=== PATIENT | female | born 1945 | race Caucasian/White ===

== ENCOUNTER 2023-03-04 09:41 | Inpatient (IN) | payer MEDICARE, OTHER ==
[~2023-03-04] VITALS: Ht 157.5 cm; Wt 75.3 kg
[2023-03-04] MEDS ORDERED: SUCRALFATE (10:01)
[2023-03-04] MEDS ORDERED: ELIQUIS (10:01)
[2023-03-04] MEDS ORDERED: FEOSOL (10:01)
[2023-03-04] MEDS ORDERED: PROTONIX (10:01)
[2023-03-04] MEDS ORDERED: PRIMIDONE (10:01)
[2023-03-04] MEDS ORDERED: DILTIAZEM (10:01)
[2023-03-04] MEDS ORDERED: MIRALAX (10:01)
[2023-03-04] MEDS ORDERED: OXYCODONE/APAP 5-325 MG TABLET PO ONE ×2 (10:15→16:45)
[2023-03-04] MEDS ORDERED: OXYCODONE/APAP 5-325 MG TABLET ONE ×2 (10:42→16:43)
[2023-03-04] MEDS ORDERED: HYDR-3980 PO (11:14)
[2023-03-04 15:56] LABS: BASOPHILS % (AUTO) 0.2 % (0.0-2.0); EOSINOPHILS % (AUTO) 0.1 % (0.0-7.0); HEMATOCRIT 31.3 % (31.2-41.9); HEMOGLOBIN 10.4 g/dL (10.9-14.3); LYMPHOCYTES # (AUTO) 1.1 K/uL (0.8-4.8); LYMPHOCYTES % (AUTO) 12.6 % (20.5-51.5); MEAN CORPUSCULAR HEMOGLOBIN 30.8 uug (24.7-32.8); MEAN CORPUSCULAR HGB CONC 33 g/dL (32.3-35.6); MONOCYTES # (AUTO) 0.8 K/uL (0.1-1.30); MONOCYTES % (AUTO) 8.9 % (0.0-11.0); NEUTROPHILS % (AUTO) 78.2 % (38.5-71.5); PLATELET COUNT (AUTO) 162 K/uL (179-408); RED BLOOD CELL COUNT(AUTO) 3.37 MIL/uL (3.63-4.92); RED CELL DISTRIBUTION WIDTH 14.8 % (12.3-17.7)
[2023-03-04 16:03] LABS: CALCIUM 8.4 mg/dL (8.5-10.1); CARBON DIOXIDE 30 mmol/L (21-32); CHLORIDE 106 mmol/L (98-107); CREATININE 0.8 mg/dL (0.6-1.3); GLUCOSE 137 mg/dL (74-106); POTASSIUM 3.2 mmol/L (3.5-5.1); SODIUM SERUM 144 mmol/L (136-145); UREA NITROGEN, BLOOD 13 mg/dL (7-18)
[2023-03-04 16:08] LABS: DIFFERENTIAL COMMENT 1
[2023-03-04 17:31] LABS: ALBUMIN 3.4 g/dL (3.4-5.0); BILIRUBIN,DIRECT 0.2 mg/dL (0.0-0.2); BILIRUBIN,TOTAL 0.2 mg/dL (0.2-1.0)
[2023-03-04] MEDS ORDERED: ACETAMINOPHEN 325 MG TABLET PO PRN (20:30)
[2023-03-04] MEDS ORDERED: MAGNESIUM HYDROXIDE 30 ML LIQUID UDC PO PRN (20:30)
[2023-03-04] MEDS ORDERED: ONDANSETRON 4 MG/2 ML VIAL IV PRN (20:30)
[2023-03-04] MEDS: DOCUSATE SODIUM 100 MG CAPSULE PO SCH (21:00)
[2023-03-04 21:20] VITALS: BP 123/43; TEMP 98.2; O2SAT 97
[2023-03-04] MEDS: MORPHINE SULFATE 2 MG/1 ML DISP.SYRIN IV PRN (22:16)
[2023-03-05 04:30] VITALS: BP 127/46; TEMP 98.1; O2SAT 97
[2023-03-05] MEDS: MORPHINE SULFATE 2 MG/1 ML DISP.SYRIN IV PRN ×3 (04:32→23:23)
[2023-03-05] MEDS: PANTOPRAZOLE SODIUM 40 MG TABLET.DR PO SCH (06:43)
[2023-03-05 08:07] LABS: BASOPHILS % (AUTO) 0.5 % (0.0-2.0); EOSINOPHILS # (AUTO) 0.1 K/uL (0.0-0.7); EOSINOPHILS % (AUTO) 1.9 % (0.0-7.0); HEMATOCRIT 30.2 % (31.2-41.9); HEMOGLOBIN 10.3 g/dL (10.9-14.3); LYMPHOCYTES # (AUTO) 1.5 K/uL (0.8-4.8); LYMPHOCYTES % (AUTO) 19.2 % (20.5-51.5); MEAN CORPUSCULAR HEMOGLOBIN 31.2 uug (24.7-32.8); MEAN CORPUSCULAR HGB CONC 34 g/dL (32.3-35.6); MEAN CORPUSCULAR VOLUME 91.7 fL (75.5-95.3); MONOCYTES # (AUTO) 0.9 K/uL (0.1-1.30); MONOCYTES % (AUTO) 11.6 % (0.0-11.0); NEUTROPHILS # (AUTO) 5.2 K/uL (1.8-8.9); NEUTROPHILS % (AUTO) 66.8 % (38.5-71.5); PLATELET COUNT (AUTO) 143 K/uL (179-408); RED BLOOD CELL COUNT(AUTO) 3.29 MIL/uL (3.63-4.92); RED CELL DISTRIBUTION WIDTH 14.8 % (12.3-17.7); WHITE BLOOD COUNT (AUTO) 7.7 K/uL (3.8-11.8)
[2023-03-05 08:27] LABS: DIFFERENTIAL COMMENT 1
[2023-03-05 09:07] LABS: ALANINE AMINOTRANSFERASE 24 U/L (14-59); ALBUMIN 3.1 g/dL (3.4-5.0); ALKALINE PHOSPHATASE 60 U/L (50-136); ASPARTATE AMINOTRANSFERASE 19 U/L (15-37); BILIRUBIN,TOTAL 0.3 mg/dL (0.2-1.0); CARBON DIOXIDE 29 mmol/L (21-32); CHLORIDE 105 mmol/L (98-107); CHOLESTEROL 160 mg/dL (<200); CREATININE 0.5 mg/dL (0.6-1.3); GLUCOSE 102 mg/dL (74-106); HDL CHOLESTEROL 75 mg/dL (40-60); MAGNESIUM 2.2 mg/dL (1.8-2.4); PHOSPHOROUS 2.9 mg/dL (2.5-4.9); POTASSIUM 3.4 mmol/L (3.5-5.1); SODIUM SERUM 141 mmol/L (136-145); TOTAL PROTEIN, SERUM 6.6 g/dL (6.4-8.2); TRIGLYCERIDES 78 MG/DL (30-150); UREA NITROGEN, BLOOD 17 mg/dL (7-18)
[2023-03-05 09:54] LABS: IRON, SERUM 23 ug/dL (50-175)
[2023-03-05 10:05] LABS: CALCIUM 8.8 mg/dL (8.5-10.1)
[2023-03-05] MEDS ORDERED: POTASSIUM CHLORIDE 20 MEQ TAB.PRT.SR PO ONE (10:45)
[2023-03-05] MEDS: HYDROCODONE/APAP 5-325MG TABLET PO PRN (14:15)
[2023-03-05 16:00] VITALS: BP 149/66; TEMP 98.4; O2SAT 96
[2023-03-05] MEDS ORDERED: BISACODYL 10 MG SUPP.RECT RC PRN (19:45)
[2023-03-05 20:00] VITALS: BP 123/51; TEMP 98.7; O2SAT 94
[2023-03-05] MEDS: DOCUSATE SODIUM 100 MG CAPSULE PO SCH (21:16)
[2023-03-06] MEDS: MORPHINE SULFATE 2 MG/1 ML DISP.SYRIN IV PRN (04:41)
[2023-03-06 06:19] LABS: BASOPHILS # (AUTO) 0.1 K/UL (0.0-0.2); BASOPHILS % (AUTO) 0.5 % (0.0-2.0); EOSINOPHILS # (AUTO) 0.1 K/uL (0.0-0.7); EOSINOPHILS % (AUTO) 0.6 % (0.0-7.0); HEMATOCRIT 31.6 % (31.2-41.9); HEMOGLOBIN 10.8 g/dL (10.9-14.3); LYMPHOCYTES # (AUTO) 1.2 K/uL (0.8-4.8); LYMPHOCYTES % (AUTO) 12.3 % (20.5-51.5); MEAN CORPUSCULAR HEMOGLOBIN 31.3 uug (24.7-32.8); MEAN CORPUSCULAR HGB CONC 34 g/dL (32.3-35.6); MEAN CORPUSCULAR VOLUME 91.7 fL (75.5-95.3); MONOCYTES # (AUTO) 1.1 K/uL (0.1-1.30); MONOCYTES % (AUTO) 10.9 % (0.0-11.0); NEUTROPHILS # (AUTO) 7.5 K/uL (1.8-8.9); NEUTROPHILS % (AUTO) 75.7 % (38.5-71.5); PLATELET COUNT (AUTO) 161 K/uL (179-408); RED BLOOD CELL COUNT(AUTO) 3.45 MIL/uL (3.63-4.92); RED CELL DISTRIBUTION WIDTH 14.7 % (12.3-17.7); WHITE BLOOD COUNT (AUTO) 9.9 K/uL (3.8-11.8)
[2023-03-06 06:27] VITALS: BP 116/56; TEMP 98.6; O2SAT 93
[2023-03-06] MEDS: PANTOPRAZOLE SODIUM 40 MG TABLET.DR PO SCH (06:40)
[2023-03-06 06:52] LABS: CALCIUM 8.6 mg/dL (8.5-10.1); CARBON DIOXIDE 26 mmol/L (21-32); CHLORIDE 102 mmol/L (98-107); CREATININE 0.5 mg/dL (0.6-1.3); GLUCOSE 129 mg/dL (74-106); MAGNESIUM 1.8 mg/dL (1.8-2.4); NT-PRO BNP 406 pg/mL (0-125); PHOSPHOROUS 3.1 mg/dL (2.5-4.9); POTASSIUM 3.5 mmol/L (3.5-5.1); SODIUM SERUM 138 mmol/L (136-145); UREA NITROGEN, BLOOD 15 mg/dL (7-18)
[2023-03-06 07:10] LABS: DIFFERENTIAL COMMENT 1
[2023-03-06 11:11] VITALS: BP 121/50; TEMP 98.2; O2SAT 94
[2023-03-06] MEDS: HYDROCODONE/APAP 5-325MG TABLET PO PRN ×2 (14:02→19:56)
[2023-03-06 15:47] VITALS: BP 131/54; TEMP 98.3; O2SAT 94
[2023-03-06 19:53] VITALS: BP 150/67; TEMP 98; O2SAT 95
[2023-03-06] MEDS: DOCUSATE SODIUM 100 MG CAPSULE PO SCH (20:07)
[2023-03-06] MEDS ORDERED: APIXABAN 2.5 MG TABLET PO SCH (21:00)
[2023-03-06] MEDS ORDERED: PRIMIDONE 250 MG TABLET PO SCH (21:00)
[2023-03-06] MEDS: ZOLPIDEM 5 MG TABLET PO PRN (21:00)
[2023-03-07 04:00] VITALS: BP 128/62; TEMP 98; O2SAT 95
[2023-03-07] MEDS: PANTOPRAZOLE SODIUM 40 MG TABLET.DR PO SCH (06:09)
[2023-03-07 08:00] VITALS: BP 137/58; TEMP 98.4; O2SAT 95
[2023-03-07 08:52] LABS: BASOPHILS # (AUTO) 0.1 K/UL (0.0-0.2); BASOPHILS % (AUTO) 0.6 % (0.0-2.0); EOSINOPHILS # (AUTO) 0.1 K/uL (0.0-0.7); EOSINOPHILS % (AUTO) 1.3 % (0.0-7.0); HEMATOCRIT 32.1 % (31.2-41.9); HEMOGLOBIN 10.8 g/dL (10.9-14.3); LYMPHOCYTES # (AUTO) 1.1 K/uL (0.8-4.8); LYMPHOCYTES % (AUTO) 11.3 % (20.5-51.5); MEAN CORPUSCULAR HEMOGLOBIN 31.1 uug (24.7-32.8); MEAN CORPUSCULAR HGB CONC 34 g/dL (32.3-35.6); MEAN CORPUSCULAR VOLUME 91.9 fL (75.5-95.3); MONOCYTES % (AUTO) 10.6 % (0.0-11.0); NEUTROPHILS # (AUTO) 7.4 K/uL (1.8-8.9); NEUTROPHILS % (AUTO) 76.2 % (38.5-71.5); PLATELET COUNT (AUTO) 211 K/uL (179-408); RED BLOOD CELL COUNT(AUTO) 3.49 MIL/uL (3.63-4.92); RED CELL DISTRIBUTION WIDTH 14.9 % (12.3-17.7); WHITE BLOOD COUNT (AUTO) 9.7 K/uL (3.8-11.8)
[2023-03-07] MEDS ORDERED: DILTIAZEM HCL CD 120 MG CAP.SR.24H PO SCH ×2 (09:00)
[2023-03-07] MEDS ORDERED: PRIMIDONE 250 MG TABLET PO ONE (09:00)
[2023-03-07] MEDS ORDERED: APIXABAN 2.5 MG TABLET PO ONE (09:00)
[2023-03-07] MEDS ORDERED: PRIMIDONE 250 MG TABLET PO SCH (09:00)
[2023-03-07 09:10] LABS: ALANINE AMINOTRANSFERASE 16 U/L (14-59); ALBUMIN 3.1 g/dL (3.4-5.0); ALKALINE PHOSPHATASE 68 U/L (50-136); ASPARTATE AMINOTRANSFERASE 7 U/L (15-37); BILIRUBIN,TOTAL 0.6 mg/dL (0.2-1.0); CALCIUM 8.9 mg/dL (8.5-10.1); CARBON DIOXIDE 28 mmol/L (21-32); CHLORIDE 100 mmol/L (98-107); CREATININE 0.4 mg/dL (0.6-1.3); GLUCOSE 132 mg/dL (74-106); MAGNESIUM 2.1 mg/dL (1.8-2.4); PHOSPHOROUS 3.6 mg/dL (2.5-4.9); POTASSIUM 3.3 mmol/L (3.5-5.1); SODIUM SERUM 135 mmol/L (136-145); TOTAL PROTEIN, SERUM 7.1 g/dL (6.4-8.2); UREA NITROGEN, BLOOD 20 mg/dL (7-18)
[2023-03-07 09:29] LABS: DIFFERENTIAL COMMENT 1
[2023-03-07 09:33] LABS: AMMONIA < 10 umol/L (11-32)
[2023-03-07] MEDS: HYDROCODONE/APAP 5-325MG TABLET PO PRN (10:07)
[2023-03-07] MEDS ORDERED: LACTULOSE 20 G/30 ML LIQUID UDC PO PRN (10:30)
[2023-03-07 12:00] VITALS: BP 143/61; TEMP 98.3; O2SAT 94
[2023-03-07] MEDS ORDERED: DILT60TA3 PO (12:10)
[2023-03-07] MEDS ORDERED: FERR300L PO (12:12)
[2023-03-07] MEDS ORDERED: APIX5TAB PO (12:12)
[2023-03-07] MEDS ORDERED: POLY17PO4 PO (12:13)
[2023-03-07] MEDS ORDERED: PRIM250T32 PO (12:16)
[2023-03-07 16:00] VITALS: BP 138/68; TEMP 97.6; O2SAT 97
[2023-03-07] MEDS: DILTIAZEM HCL 60 MG TABLET PO SCH (18:28)
[2023-03-07 20:00] VITALS: BP 123/61; TEMP 98.6; O2SAT 95
[2023-03-07] MEDS ORDERED: APIXABAN 2.5 MG TABLET PO SCH (21:00)
[2023-03-07] MEDS: DOCUSATE SODIUM 100 MG CAPSULE PO SCH (21:39)
[2023-03-07] MEDS: APIXABAN 5 MG TABLET PO SCH (21:40)
[2023-03-07] MEDS: PRIMIDONE 250 MG TABLET PO SCH (21:47)
[2023-03-07] MEDS: ZOLPIDEM 5 MG TABLET PO PRN (23:27)
[2023-03-08 04:00] VITALS: BP 131/62; TEMP 98.1; O2SAT 96
[2023-03-08] MEDS: PANTOPRAZOLE SODIUM 40 MG TABLET.DR PO SCH (06:04)
[2023-03-08] MEDS: PRIMIDONE 250 MG TABLET PO SCH ×2 (06:04→14:56)
[2023-03-08 08:00] VITALS: BP 130/74; TEMP 98.8; O2SAT 94
[2023-03-08] MEDS: HYDROCODONE/APAP 5-325MG TABLET PO PRN (09:14)
[2023-03-08] MEDS: DILTIAZEM HCL 60 MG TABLET PO SCH (09:15)
[2023-03-08] MEDS: APIXABAN 5 MG TABLET PO SCH (09:18)
[2023-03-08 12:00] VITALS: BP 141/75; TEMP 97.5; O2SAT 96
[2023-03-08 13:58] VITALS: TEMP 97.5
[2023-03-08] MEDS ORDERED: FLEET ENEMA 133 ML BOTTLE RC PRN (15:00)
[2023-03-08 15:53] VITALS: BP 120/50; TEMP 99; O2SAT 98
== END 2023-03-08 16:31 | DRG 543 ==
LOC: ER 09:42 → MEDSURG3 21:02
PROVIDERS: ADMIT Internal Medicine; ATTEND Internal Medicine
DX: M80.0AXA Age-related osteoporosis with current pathological fracture, other site, initial encounter for fracture (principal); D68.59 Other primary thrombophilia; M62.82 Rhabdomyolysis; E87.1 Hypo-osmolality and hyponatremia; D69.6 Thrombocytopenia, unspecified; G25.0 Essential tremor; E87.6 Hypokalemia; E66.9 Obesity, unspecified; Z68.30 Body mass index [BMI] 30.0-30.9, adult; W01.0XXA Fall on same level from slipping, tripping and stumbling without subsequent striking against object, initial encounter; Y93.01 Activity, walking, marching and hiking; Y92.018 Other place in single-family (private) house as the place of occurrence of the external cause; M81.0 Age-related osteoporosis without current pathological fracture; I48.91 Unspecified atrial fibrillation; I25.10 Atherosclerotic heart disease of native coronary artery without angina pectoris; D64.9 Anemia, unspecified; R73.9 Hyperglycemia, unspecified; Z87.828 Personal history of other (healed) physical injury and trauma
CPT/HCPCS: 36415; 71045; 73502; 82378; 83550; 83735; 84100; 84443; 84484; 85025; 93005; G0378; J2270

== ENCOUNTER 2023-03-08 16:48 | Inpatient (IN) | payer MEDICARE, OTHER ==
[~2023-03-08] VITALS: Ht 157.5 cm; Wt 75.3 kg
[~2023-03-08 16:48] MED LIST: APIX5TAB PO; DILT60TA3 PO; FERR300L PO; HYDR-3980 PO; POLY17PO4 PO; PRIM250T32 PO
[2023-03-08] MEDS ORDERED: ONDANSETRON 4 MG/2 ML VIAL IV PRN ×2 (17:45→19:00)
[2023-03-08] MEDS ORDERED: FLEET ENEMA 133 ML BOTTLE RC PRN (18:30)
[2023-03-08] MEDS ORDERED: BISACODYL 10 MG SUPP.RECT RC PRN (18:55)
[2023-03-08] MEDS ORDERED: MORPHINE SULFATE 2 MG/1 ML DISP.SYRIN IV PRN (18:57)
[2023-03-08] MEDS ORDERED: LACTULOSE 20 G/30 ML LIQUID UDC PO PRN (18:59)
[2023-03-08 20:00] VITALS: BP 117/45; TEMP 98.5; O2SAT 95
[2023-03-08] MEDS: DOCUSATE SODIUM 100 MG CAPSULE PO SCH (20:33)
[2023-03-08] MEDS: APIXABAN 5 MG TABLET PO SCH (20:33)
[2023-03-08] MEDS: HYDROCODONE/APAP 5-325MG TABLET PO PRN (20:55)
[2023-03-08] MEDS: PRIMIDONE 250 MG TABLET PO SCH (21:09)
[2023-03-08 22:33] LABS: *OCCULT BLOOD STOOL POSITIVE (NEGATIVE)
[2023-03-09 00:08] VITALS: BP 115/45; TEMP 98.2
[2023-03-09] MEDS: PRIMIDONE 250 MG TABLET PO SCH ×3 (05:33→21:12)
[2023-03-09] MEDS: HYDROCODONE/APAP 5-325MG TABLET PO PRN (05:33)
[2023-03-09] MEDS: PANTOPRAZOLE SODIUM 40 MG TABLET.DR PO SCH (06:04)
[2023-03-09 06:49] VITALS: BP 113/50; TEMP 98.3
[2023-03-09] MEDS: DILTIAZEM HCL 60 MG TABLET PO SCH ×2 (09:36→16:34)
[2023-03-09] MEDS: APIXABAN 5 MG TABLET PO SCH ×2 (09:38→20:22)
[2023-03-09 15:45] VITALS: BP 110/45; TEMP 99
[2023-03-09 15:53] VITALS: BP 110/45; TEMP 99.1
[2023-03-09 19:50] VITALS: BP 114/46; TEMP 98.2; O2SAT 97
[2023-03-09] MEDS: DOCUSATE SODIUM 100 MG CAPSULE PO SCH (20:21)
[2023-03-10] MEDS: PANTOPRAZOLE SODIUM 40 MG TABLET.DR PO SCH (05:10)
[2023-03-10] MEDS: PRIMIDONE 250 MG TABLET PO SCH ×3 (05:10→21:00)
[2023-03-10 06:17] VITALS: BP 124/65; TEMP 98.3; O2SAT 92
[2023-03-10 07:31] VITALS: BP 135/48; TEMP 98.5; O2SAT 94
[2023-03-10] MEDS: DILTIAZEM HCL 60 MG TABLET PO SCH ×2 (08:24→16:05)
[2023-03-10] MEDS: APIXABAN 5 MG TABLET PO SCH ×2 (08:27→20:05)
[2023-03-10 15:34] VITALS: BP 124/53; TEMP 98.5; O2SAT 97
[2023-03-10 20:00] VITALS: BP 133/49; TEMP 98.1; O2SAT 96
[2023-03-10] MEDS ORDERED: ZOLPIDEM 5 MG TABLET PO PRN (20:00)
[2023-03-10] MEDS: DOCUSATE SODIUM 100 MG CAPSULE PO SCH (20:07)
[2023-03-10] MEDS: ZOLPIDEM 5 MG TABLET PO PRN (20:17)
[2023-03-11 04:00] VITALS: BP 118/43; TEMP 98.3; O2SAT 96
[2023-03-11] MEDS: PRIMIDONE 250 MG TABLET PO SCH ×3 (05:02→21:22)
[2023-03-11] MEDS: PANTOPRAZOLE SODIUM 40 MG TABLET.DR PO SCH (06:01)
[2023-03-11 07:40] VITALS: BP 124/77; TEMP 98.3; O2SAT 95
[2023-03-11] MEDS: APIXABAN 5 MG TABLET PO SCH ×2 (08:57→20:13)
[2023-03-11] MEDS: FERROUS SULFATE 325 MG TABEC PO SCH (08:57)
[2023-03-11] MEDS: DILTIAZEM HCL 60 MG TABLET PO SCH ×2 (08:58→17:39)
[2023-03-11] MEDS: HYDROCODONE/APAP 5-325MG TABLET PO PRN ×2 (09:23→15:16)
[2023-03-11 15:39] VITALS: BP 116/40; TEMP 98.5; O2SAT 95
[2023-03-11 20:00] VITALS: BP 155/60; TEMP 98.7; O2SAT 94
[2023-03-11] MEDS: DOCUSATE SODIUM 100 MG CAPSULE PO SCH (20:13)
[2023-03-11] MEDS: ACETAMINOPHEN 325 MG TABLET PO PRN (20:13)
[2023-03-11] MEDS: ZOLPIDEM 5 MG TABLET PO PRN (21:29)
[2023-03-12 04:00] VITALS: BP 115/53; TEMP 98.2; O2SAT 98
[2023-03-12] MEDS: PRIMIDONE 250 MG TABLET PO SCH ×3 (05:51→21:59)
[2023-03-12] MEDS: PANTOPRAZOLE SODIUM 40 MG TABLET.DR PO SCH (06:14)
[2023-03-12 08:00] VITALS: BP_SYST 120; BP_SYST 122; BP_DIAS 41; BP_DIAS 45; TEMP 98.2; TEMP 98.3; O2SAT 97
[2023-03-12] MEDS: FERROUS SULFATE 325 MG TABEC PO SCH (08:57)
[2023-03-12] MEDS: HYDROCODONE/APAP 5-325MG TABLET PO PRN ×3 (08:57→18:06)
[2023-03-12] MEDS: DILTIAZEM HCL 60 MG TABLET PO SCH ×2 (09:01→18:02)
[2023-03-12] MEDS: APIXABAN 5 MG TABLET PO SCH ×2 (09:02→21:00)
[2023-03-12 16:05] VITALS: BP 139/56; TEMP 98.6; O2SAT 96
[2023-03-12 20:05] VITALS: BP 121/36; TEMP 97.9; O2SAT 96
[2023-03-12] MEDS: DOCUSATE SODIUM 100 MG CAPSULE PO SCH (21:59)
[2023-03-12] MEDS: ZOLPIDEM 5 MG TABLET PO PRN (22:40)
[2023-03-13] MEDS: HYDROCODONE/APAP 5-325MG TABLET PO PRN ×4 (01:56→17:26)
[2023-03-13 05:33] VITALS: BP 117/45
[2023-03-13 06:00] VITALS: BP 116/46; TEMP 98.7; O2SAT 98
[2023-03-13] MEDS: PRIMIDONE 250 MG TABLET PO SCH ×3 (06:28→22:17)
[2023-03-13] MEDS: PANTOPRAZOLE SODIUM 40 MG TABLET.DR PO SCH (06:28)
[2023-03-13 08:00] VITALS: BP 126/41; TEMP 98.5; O2SAT 97
[2023-03-13] MEDS: FERROUS SULFATE 325 MG TABEC PO SCH (08:44)
[2023-03-13] MEDS: DILTIAZEM HCL 60 MG TABLET PO SCH ×2 (08:44→17:26)
[2023-03-13] MEDS: APIXABAN 5 MG TABLET PO SCH ×2 (08:45→20:17)
[2023-03-13] MEDS: MAGNESIUM HYDROXIDE 30 ML LIQUID UDC PO PRN (15:17)
[2023-03-13 16:27] VITALS: BP 115/33; TEMP 98.6; O2SAT 95
[2023-03-13 20:00] VITALS: BP 119/39; TEMP 98.4; O2SAT 96
[2023-03-13] MEDS: DOCUSATE SODIUM 100 MG CAPSULE PO SCH (20:16)
[2023-03-13] MEDS: ACETAMINOPHEN 325 MG TABLET PO PRN (20:17)
[2023-03-14 04:00] VITALS: BP 113/50; TEMP 98.2; O2SAT 97
[2023-03-14] MEDS: PANTOPRAZOLE SODIUM 40 MG TABLET.DR PO SCH (06:11)
[2023-03-14] MEDS: PRIMIDONE 250 MG TABLET PO SCH ×3 (06:11→21:01)
[2023-03-14 07:13] LABS: CREATININE 0.6 mg/dL (0.6-1.3); POTASSIUM 4.8 mmol/L (3.5-5.1)
[2023-03-14 07:53] VITALS: BP 135/40; TEMP 98.3; O2SAT 97
[2023-03-14] MEDS: DILTIAZEM HCL 60 MG TABLET PO SCH ×2 (09:00→17:04)
[2023-03-14] MEDS: APIXABAN 5 MG TABLET PO SCH ×2 (09:01→21:00)
[2023-03-14] MEDS: FERROUS SULFATE 325 MG TABEC PO SCH (09:01)
[2023-03-14 12:12] VITALS: BP 134/56; TEMP 98.8; O2SAT 64
[2023-03-14] MEDS: REMEDY ESSENTIAL ZINC PASTE 113 GM TOP SCH ×2 (12:25→20:58)
[2023-03-14] MEDS: ACETAMINOPHEN 325 MG TABLET PO PRN (13:09)
[2023-03-14 16:19] VITALS: BP 115/45; TEMP 98.3; O2SAT 94
[2023-03-14 20:00] VITALS: BP 113/56; TEMP 98.4; O2SAT 97
[2023-03-14] MEDS: DOCUSATE SODIUM 100 MG CAPSULE PO SCH (20:58)
[2023-03-15 04:00] VITALS: BP 109/40; TEMP 98.2; O2SAT 94
[2023-03-15] MEDS: PRIMIDONE 250 MG TABLET PO SCH ×3 (06:17→21:03)
[2023-03-15] MEDS: PANTOPRAZOLE SODIUM 40 MG TABLET.DR PO SCH (06:18)
[2023-03-15 07:59] VITALS: BP 138/43; TEMP 98.9; O2SAT 92
[2023-03-15] MEDS: DILTIAZEM HCL 60 MG TABLET PO SCH ×2 (08:13→16:22)
[2023-03-15] MEDS: FERROUS SULFATE 325 MG TABEC PO SCH (08:15)
[2023-03-15] MEDS: APIXABAN 5 MG TABLET PO SCH ×2 (08:15→20:32)
[2023-03-15] MEDS: REMEDY ESSENTIAL ZINC PASTE 113 GM TOP SCH ×2 (08:16→20:32)
[2023-03-15] MEDS: ACETAMINOPHEN 325 MG TABLET PO PRN (12:03)
[2023-03-15] MEDS: PREGABALIN 50 MG CAPSULE PO SCH (16:23)
[2023-03-15 16:26] VITALS: BP 113/41; TEMP 97.7; O2SAT 97
[2023-03-15 19:45] VITALS: BP 108/48; TEMP 98.4; O2SAT 92
[2023-03-15] MEDS: DOCUSATE SODIUM 100 MG CAPSULE PO SCH (20:32)
[2023-03-16] MEDS: PRIMIDONE 250 MG TABLET PO SCH ×3 (06:09→21:14)
[2023-03-16] MEDS: PANTOPRAZOLE SODIUM 40 MG TABLET.DR PO SCH (06:09)
[2023-03-16 06:30] VITALS: BP 104/46; TEMP 98.2; O2SAT 97
[2023-03-16 07:48] VITALS: BP 120/49; TEMP 98.7; O2SAT 96
[2023-03-16] MEDS: PREGABALIN 50 MG CAPSULE PO SCH ×2 (08:00→16:28)
[2023-03-16] MEDS: FERROUS SULFATE 325 MG TABEC PO SCH (08:00)
[2023-03-16] MEDS: DILTIAZEM HCL 60 MG TABLET PO SCH ×2 (08:00→16:28)
[2023-03-16] MEDS: APIXABAN 5 MG TABLET PO SCH ×2 (08:01→20:27)
[2023-03-16] MEDS: REMEDY ESSENTIAL ZINC PASTE 113 GM TOP SCH ×2 (08:15→20:27)
[2023-03-16] MEDS: HYDROCODONE/APAP 5-325MG TABLET PO PRN (13:01)
[2023-03-16 15:32] VITALS: BP 115/73; TEMP 97.6; O2SAT 94
[2023-03-16 20:10] VITALS: BP 149/46; TEMP 97.8; O2SAT 94
[2023-03-16] MEDS: DOCUSATE SODIUM 100 MG CAPSULE PO SCH (20:27)
[2023-03-16] MEDS: ACETAMINOPHEN 325 MG TABLET PO PRN (22:07)
[2023-03-17 06:00] VITALS: BP 115/47; TEMP 97.7; O2SAT 96
[2023-03-17] MEDS: PANTOPRAZOLE SODIUM 40 MG TABLET.DR PO SCH (06:12)
[2023-03-17] MEDS: PRIMIDONE 250 MG TABLET PO SCH ×3 (06:12→21:23)
[2023-03-17] MEDS: FERROUS SULFATE 325 MG TABEC PO SCH (08:18)
[2023-03-17] MEDS: PREGABALIN 50 MG CAPSULE PO SCH ×2 (08:18→16:08)
[2023-03-17] MEDS: DILTIAZEM HCL 60 MG TABLET PO SCH ×2 (08:18→16:07)
[2023-03-17] MEDS: APIXABAN 5 MG TABLET PO SCH ×2 (08:19→20:36)
[2023-03-17] MEDS: REMEDY ESSENTIAL ZINC PASTE 113 GM TOP SCH ×2 (08:31→20:37)
[2023-03-17 15:16] VITALS: BP 117/53; TEMP 98.1; O2SAT 96
[2023-03-17 20:00] VITALS: BP 107/47; TEMP 98.2; O2SAT 95
[2023-03-17] MEDS: DOCUSATE SODIUM 100 MG CAPSULE PO SCH (20:35)
[2023-03-18 04:00] VITALS: BP 110/41; TEMP 97.6; O2SAT 98
[2023-03-18 04:50] VITALS: BP 110/41; TEMP 97.6; O2SAT 98
[2023-03-18] MEDS: PRIMIDONE 250 MG TABLET PO SCH ×3 (06:03→21:08)
[2023-03-18] MEDS: PANTOPRAZOLE SODIUM 40 MG TABLET.DR PO SCH (06:03)
[2023-03-18 08:00] VITALS: BP 124/50; TEMP 98.2; O2SAT 98
[2023-03-18 08:03] VITALS: TEMP 98.2
[2023-03-18] MEDS: FERROUS SULFATE 325 MG TABEC PO SCH (08:09)
[2023-03-18] MEDS: PREGABALIN 50 MG CAPSULE PO SCH ×2 (08:09→16:26)
[2023-03-18] MEDS: DILTIAZEM HCL 60 MG TABLET PO SCH ×2 (08:09→16:26)
[2023-03-18] MEDS: APIXABAN 5 MG TABLET PO SCH ×2 (08:10→21:07)
[2023-03-18] MEDS: REMEDY ESSENTIAL ZINC PASTE 113 GM TOP SCH ×2 (08:10→21:07)
[2023-03-18 15:32] VITALS: BP 130/50; TEMP 98; O2SAT 97
[2023-03-18] MEDS: DOCUSATE SODIUM 100 MG CAPSULE PO SCH (21:06)
[2023-03-19 06:30] LABS: BASOPHILS % (AUTO) 0.7 % (0.0-2.0); EOSINOPHILS # (AUTO) 0.1 K/uL (0.0-0.7); EOSINOPHILS % (AUTO) 1.3 % (0.0-7.0); HEMOGLOBIN 11.1 g/dL (10.9-14.3); LYMPHOCYTES # (AUTO) 1.7 K/uL (0.8-4.8); LYMPHOCYTES % (AUTO) 24.3 % (20.5-51.5); MEAN CORPUSCULAR HEMOGLOBIN 31.4 uug (24.7-32.8); MEAN CORPUSCULAR HGB CONC 34 g/dL (32.3-35.6); MEAN CORPUSCULAR VOLUME 93.8 fL (75.5-95.3); MONOCYTES # (AUTO) 0.8 K/uL (0.1-1.30); MONOCYTES % (AUTO) 11.9 % (0.0-11.0); NEUTROPHILS # (AUTO) 4.2 K/uL (1.8-8.9); NEUTROPHILS % (AUTO) 61.8 % (38.5-71.5); PLATELET COUNT (AUTO) 315 K/uL (179-408); RED BLOOD CELL COUNT(AUTO) 3.52 MIL/uL (3.63-4.92); RED CELL DISTRIBUTION WIDTH 15.7 % (12.3-17.7); WHITE BLOOD COUNT (AUTO) 6.8 K/uL (3.8-11.8)
[2023-03-19] MEDS: PANTOPRAZOLE SODIUM 40 MG TABLET.DR PO SCH (06:38)
[2023-03-19] MEDS: PRIMIDONE 250 MG TABLET PO SCH ×3 (06:38→21:39)
[2023-03-19 06:54] LABS: DIFFERENTIAL COMMENT 1
[2023-03-19 07:03] LABS: ALANINE AMINOTRANSFERASE 39 U/L (14-59); ALKALINE PHOSPHATASE 170 U/L (50-136); ASPARTATE AMINOTRANSFERASE 21 U/L (15-37); BILIRUBIN,TOTAL 0.2 mg/dL (0.2-1.0); CALCIUM 9.2 mg/dL (8.5-10.1); CARBON DIOXIDE 29 mmol/L (21-32); CHLORIDE 103 mmol/L (98-107); CREATININE 0.6 mg/dL (0.6-1.3); GLUCOSE 113 mg/dL (74-106); MAGNESIUM 2.2 mg/dL (1.8-2.4); PHOSPHOROUS 4.2 mg/dL (2.5-4.9); POTASSIUM 4.3 mmol/L (3.5-5.1); SODIUM SERUM 140 mmol/L (136-145); TOTAL PROTEIN, SERUM 6.9 g/dL (6.4-8.2); UREA NITROGEN, BLOOD 18 mg/dL (7-18)
[2023-03-19 08:00] VITALS: BP 113/43; TEMP 98.2; O2SAT 98
[2023-03-19] MEDS: DILTIAZEM HCL 60 MG TABLET PO SCH ×2 (08:44→16:11)
[2023-03-19] MEDS: APIXABAN 5 MG TABLET PO SCH ×2 (08:45→21:40)
[2023-03-19] MEDS: FERROUS SULFATE 325 MG TABEC PO SCH (08:45)
[2023-03-19] MEDS: REMEDY ESSENTIAL ZINC PASTE 113 GM TOP SCH ×2 (08:46→21:43)
[2023-03-19] MEDS: PREGABALIN 50 MG CAPSULE PO SCH ×2 (08:46→16:11)
[2023-03-19] MEDS: ACETAMINOPHEN 325 MG TABLET PO PRN (10:00)
[2023-03-19] MEDS: HYDROCODONE/APAP 5-325MG TABLET PO PRN (13:27)
[2023-03-19 15:24] VITALS: BP 114/45; TEMP 98.4; O2SAT 93
[2023-03-19] MEDS: DOCUSATE SODIUM 100 MG CAPSULE PO SCH (21:41)
[2023-03-19 21:55] VITALS: BP 111/43; TEMP 97.5; O2SAT 97
[2023-03-20] MEDS: PANTOPRAZOLE SODIUM 40 MG TABLET.DR PO SCH (06:26)
[2023-03-20] MEDS: PRIMIDONE 250 MG TABLET PO SCH ×3 (06:26→22:38)
[2023-03-20] MEDS: FERROUS SULFATE 325 MG TABEC PO SCH (08:34)
[2023-03-20] MEDS: APIXABAN 5 MG TABLET PO SCH ×2 (08:34→21:24)
[2023-03-20] MEDS: PREGABALIN 50 MG CAPSULE PO SCH ×2 (08:34→16:15)
[2023-03-20] MEDS: DILTIAZEM HCL 60 MG TABLET PO SCH ×2 (08:35→16:15)
[2023-03-20 09:14] VITALS: BP 145/41; TEMP 98.1; O2SAT 98
[2023-03-20] MEDS: REMEDY ESSENTIAL ZINC PASTE 113 GM TOP SCH ×2 (09:16→21:26)
[2023-03-20 11:57] VITALS: TEMP 98
[2023-03-20] MEDS: HYDROCODONE/APAP 5-325MG TABLET PO PRN (13:18)
[2023-03-20 15:45] VITALS: BP 121/48; TEMP 97; O2SAT 96
[2023-03-20] MEDS: DOCUSATE SODIUM 100 MG CAPSULE PO SCH (21:00)
[2023-03-21] MEDS: PANTOPRAZOLE SODIUM 40 MG TABLET.DR PO SCH (06:21)
[2023-03-21] MEDS: PRIMIDONE 250 MG TABLET PO SCH ×3 (06:21→22:21)
[2023-03-21 08:06] VITALS: BP 100/50; TEMP 97.8; O2SAT 98
[2023-03-21] MEDS: OXYCODONE HCL 5 MG TABLET PO PRN ×2 (08:47→16:30)
[2023-03-21] MEDS: APIXABAN 5 MG TABLET PO SCH ×2 (08:48→21:28)
[2023-03-21] MEDS: PREGABALIN 50 MG CAPSULE PO SCH ×2 (08:49→16:29)
[2023-03-21] MEDS: FERROUS SULFATE 325 MG TABEC PO SCH (08:49)
[2023-03-21] MEDS: DILTIAZEM HCL 60 MG TABLET PO SCH ×2 (08:50→16:29)
[2023-03-21] MEDS: REMEDY ESSENTIAL ZINC PASTE 113 GM TOP SCH ×2 (08:50→21:36)
[2023-03-21 16:41] VITALS: BP 114/46; TEMP 98.2; O2SAT 98
[2023-03-21 20:59] VITALS: BP 113/52; TEMP 98; O2SAT 94
[2023-03-21] MEDS: DOCUSATE SODIUM 100 MG CAPSULE PO SCH (21:25)
[2023-03-22] MEDS: PRIMIDONE 250 MG TABLET PO SCH ×3 (06:14→21:27)
[2023-03-22] MEDS: PANTOPRAZOLE SODIUM 40 MG TABLET.DR PO SCH (06:14)
[2023-03-22 08:00] VITALS: BP 149/68; TEMP 98.3; O2SAT 96
[2023-03-22] MEDS: OXYCODONE HCL 5 MG TABLET PO PRN (08:00)
[2023-03-22] MEDS: PREGABALIN 50 MG CAPSULE PO SCH ×3 (09:40→22:00)
[2023-03-22] MEDS: FERROUS SULFATE 325 MG TABEC PO SCH (09:40)
[2023-03-22] MEDS: REMEDY ESSENTIAL ZINC PASTE 113 GM TOP SCH ×2 (09:42→20:37)
[2023-03-22] MEDS: DILTIAZEM HCL 60 MG TABLET PO SCH ×2 (09:43→16:20)
[2023-03-22] MEDS: APIXABAN 5 MG TABLET PO SCH ×2 (09:49→20:33)
[2023-03-22 11:15] VITALS: BP 115/42; TEMP 98; O2SAT 98
[2023-03-22] MEDS: LACTULOSE 20 G/30 ML LIQUID UDC PO SCH (11:15)
[2023-03-22 15:30] VITALS: BP 103/44; TEMP 98.2; O2SAT 94
[2023-03-22 20:00] VITALS: BP 137/75; TEMP 98.2; O2SAT 93
[2023-03-22] MEDS: DOCUSATE SODIUM 100 MG CAPSULE PO SCH (20:34)
[2023-03-22] MEDS: MAGNESIUM HYDROXIDE 30 ML LIQUID UDC PO PRN (20:42)
[2023-03-23 04:10] VITALS: BP 128/72; TEMP 98.2; O2SAT 95
[2023-03-23] MEDS: PRIMIDONE 250 MG TABLET PO SCH ×3 (06:10→21:51)
[2023-03-23] MEDS: PANTOPRAZOLE SODIUM 40 MG TABLET.DR PO SCH (06:10)
[2023-03-23] MEDS: PREGABALIN 50 MG CAPSULE PO SCH ×3 (06:11→21:49)
[2023-03-23 07:29] VITALS: BP 133/60; TEMP 98.3; O2SAT 98
[2023-03-23] MEDS: DILTIAZEM HCL 60 MG TABLET PO SCH ×2 (09:23→16:43)
[2023-03-23] MEDS: FERROUS SULFATE 325 MG TABEC PO SCH (09:25)
[2023-03-23] MEDS: APIXABAN 5 MG TABLET PO SCH ×2 (09:25→21:50)
[2023-03-23] MEDS: REMEDY ESSENTIAL ZINC PASTE 113 GM TOP SCH ×2 (09:26→21:52)
[2023-03-23] MEDS: ACETAMINOPHEN 325 MG TABLET PO PRN ×2 (09:52→17:07)
[2023-03-23] MEDS: LACTULOSE 20 G/30 ML LIQUID UDC PO SCH (09:53)
[2023-03-23] MEDS ORDERED: FLEET ENEMA 133 ML BOTTLE RC ONE (13:15)
[2023-03-23] MEDS: MAGNESIUM HYDROXIDE 30 ML LIQUID UDC PO PRN (13:43)
[2023-03-23 13:48] LABS: BASOPHILS # (AUTO) 0.1 K/UL (0.0-0.2); BASOPHILS % (AUTO) 0.8 % (0.0-2.0); EOSINOPHILS # (AUTO) 0.1 K/uL (0.0-0.7); EOSINOPHILS % (AUTO) 0.9 % (0.0-7.0); HEMATOCRIT 35.1 % (31.2-41.9); HEMOGLOBIN 11.6 g/dL (10.9-14.3); LYMPHOCYTES # (AUTO) 1.2 K/uL (0.8-4.8); LYMPHOCYTES % (AUTO) 15.5 % (20.5-51.5); MEAN CORPUSCULAR HEMOGLOBIN 31.2 uug (24.7-32.8); MEAN CORPUSCULAR HGB CONC 33 g/dL (32.3-35.6); MEAN CORPUSCULAR VOLUME 94.5 fL (75.5-95.3); MONOCYTES % (AUTO) 12.1 % (0.0-11.0); NEUTROPHILS # (AUTO) 5.6 K/uL (1.8-8.9); NEUTROPHILS % (AUTO) 70.7 % (38.5-71.5); PLATELET COUNT (AUTO) 330 K/uL (179-408); RED BLOOD CELL COUNT(AUTO) 3.71 MIL/uL (3.63-4.92); RED CELL DISTRIBUTION WIDTH 15.7 % (12.3-17.7); WHITE BLOOD COUNT (AUTO) 7.9 K/uL (3.8-11.8)
[2023-03-23 13:50] LABS: DIFFERENTIAL COMMENT 1
[2023-03-23 14:16] LABS: CALCIUM 9.1 mg/dL (8.5-10.1); CREATININE 0.6 mg/dL (0.6-1.3); POTASSIUM 4.5 mmol/L (3.5-5.1)
[2023-03-23 15:12] VITALS: BP 128/58; TEMP 97.6; O2SAT 95
[2023-03-23 21:26] VITALS: BP 97/44; TEMP 97.8; O2SAT 99
[2023-03-23] MEDS: DOCUSATE SODIUM 100 MG CAPSULE PO SCH (21:49)
[2023-03-23] MEDS: ZOLPIDEM 5 MG TABLET PO PRN (22:55)
[2023-03-24] MEDS: PREGABALIN 50 MG CAPSULE PO SCH ×2 (06:28→13:52)
[2023-03-24] MEDS: PRIMIDONE 250 MG TABLET PO SCH ×2 (06:28→13:52)
[2023-03-24] MEDS: PANTOPRAZOLE SODIUM 40 MG TABLET.DR PO SCH (06:28)
[2023-03-24 08:00] VITALS: TEMP 97.2
[2023-03-24] MEDS: FERROUS SULFATE 325 MG TABEC PO SCH (08:53)
[2023-03-24] MEDS: DILTIAZEM HCL 60 MG TABLET PO SCH ×2 (08:54→17:28)
[2023-03-24] MEDS: LACTULOSE 20 G/30 ML LIQUID UDC PO SCH (08:54)
[2023-03-24] MEDS: APIXABAN 5 MG TABLET PO SCH (09:07)
[2023-03-24] MEDS: REMEDY ESSENTIAL ZINC PASTE 113 GM TOP SCH (09:27)
[2023-03-24 15:58] VITALS: TEMP 97.2
[2023-03-24 19:08] VITALS: BP 130/68; TEMP 97.8; O2SAT 99
== END 2023-03-24 19:16 | disposition home health service (06) | DRG 560 ==
PROVIDERS: ADMIT Physical Medicine & Rehabilitation Pain Medicine; ATTEND Physical Medicine & Rehabilitation Pain Medicine
DX: S32.591D Other specified fracture of right pubis, subsequent encounter for fracture with routine healing (principal); D68.59 Other primary thrombophilia; M62.82 Rhabdomyolysis; D64.9 Anemia, unspecified; D69.6 Thrombocytopenia, unspecified; W18.30XD Fall on same level, unspecified, subsequent encounter; D72.829 Elevated white blood cell count, unspecified; R73.9 Hyperglycemia, unspecified; E66.9 Obesity, unspecified; Z68.30 Body mass index [BMI] 30.0-30.9, adult; M81.0 Age-related osteoporosis without current pathological fracture; K21.9 Gastro-esophageal reflux disease without esophagitis; R19.5 Other fecal abnormalities; R53.1 Weakness; M19.90 Unspecified osteoarthritis, unspecified site
CPT/HCPCS: 36415; 72148; 83735; 84100; 85025; 97535-GO-CO